=== PATIENT | female | born 2000 | race Caucasian/White ===

== ENCOUNTER 2021-07-23 22:06 | Emergency (ER) | payer BC, SELFPAY ==
[2021-07-23 22:34] VITALS: BP 103/72; PULSE 71; RESP 16; TEMP 36.8; O2SAT 98; BMI 19.1
--- NOTE | 2021-07-23 23:20 | W.ED.NAVMDI ---
HPI - Nausea/Vomiting/Diarrhea General: Chief complaint: Nausea/Vomiting/Diarrhea Stated complaint: N\V Fever Time Seen by Provider: 07/23/21 22:20 Source: patient Mode of arrival: ambulatory Limitations: no limitations History of Present Illness: 21-year-old female states she been having nausea vomiting along with some abdominal cramping throughout the day. States he started this morning she not been able to tolerate anything by mouth has been feeling dehydrated. She has some diffuse abdominal cramping denies any pain currently. Denies any worsening improving factors. Associated nausea: Yes Associated symtoms: Reports nausea; Denies chest pain, dysuria or headache(s) Review of Systems Const: Denies: fever(s), chills, body aches or change in appetite Eyes: Denies: blurry vision or eye discomfort ENMT: Denies: throat pain or dental pain Card: Denies: chest pain Resp: Denies: dyspnea GI: Reports: abdominal pain, nausea and vomiting; Denies: diarrhea : Denies: dysuria Musc: Denies: neck pain or back pain Skin/Breast: Denies: rash Neuro: Denies: headache(s) Psych: Denies: depression Ryley/Lymph: Denies: easy bruising All/Imm: Denies: urticaria PFSH ED PFSH: Medical History No pertinent past medical history Social History (Updated 07/23/21 @ 23:20 by Sj Baldwin MD) Substance/Drug Use: never Physical Exam Const: COMMON NORMALS: no acute distress, patient oriented x3 and healthy appearing HENMT: COMMON NORMALS: normocephalic and atraumatic HEAD & SCALP: normocephalic and atraumatic Eye: COMMON NORMALS: Equal, round and reactive pupils present and EOMs intact bilaterally PUPIL: Yes Equal, round and reactive pupils present Neck/C-Spine: COMMON NORMALS: full ROM and supple Chest: COMMONS NORMALS: normal inspection of the chest and normal palpation of entire chest wall Resp: COMMON NORMALS: normal respiratory effort, No retractions, No use of accessory muscles and clear to auscultation bilaterally AUSCULTATION: clear to auscultation bilaterally Cardio: COMMON NORMALS: regular rate, regular rhythm and No murmurs present (Cardio) RATE: regular rate RHYTHM: regular rhythm GI: COMMON NORMALS: Normal to inspection, nondistended, normoactive bowel sounds present, Soft to palpation, non-tender and no masses PALPATION: Yes Soft to palpation Extremity: COMMON NORMALS: normal to inspection and full ROM Neuro: COMMON NORMALS: patient oriented x3, moves all extremities and no focal motor deficits Psych: COMMON NORMALS: mental status grossly normal, Normal thought process present and cooperative THOUGHT PROCESS: Normal thought process present Skin: COMMON NORMALS: no rashes or lesions noted and no wounds GENERAL SKIN EXAM: no rashes or lesions noted Course Vital Signs: Vital signs: Vital Signs Temperature 98.2 F 07/23/21 22:34 Pulse Rate 71 07/23/21 22:34 Respiratory Rate 16 07/23/21 22:34 Blood Pressure 103/72 07/23/21 22:34 Pulse Oximetry 98 07/23/21 22:34 MDM - Nausea/Vomiting/Diarrhea Medical Decision Making Patient presents here with vomiting is likely viral illness she feels much improved after IV fluids Zofran was able to tolerate p.o. without any difficulty she has a mild leukocytosis likely reactive from vomiting abdominal exam is benign she has no signs of appendicitis or acute surgical abdomen she is to follow-up with PCP and return if worsening she understands agrees to plan. Lab Data : 07/23/21 23:25 07/23/21 23:25 Laboratory Results WBC 14.0 10^3/uL (4.5-13.0) H 07/23/21 23: RBC 4.20 10^6/uL (4.1-5.3) 07/23/21 23:25 Hgb 12.2 g/dL (11.5-15.3) 07/23/21 23:25 Hct 37.6 % (37.0-47.0) 07/23/21 23:25 MCV 89.5 fl (81-99) 07/23/21 23: MCH 29.0 pg (28.0-34.0) 07/23/21 23: MCHC 32.4 g/dL (30.0-36.0) 07/23/21 23:25 RDW 13.2 % (12.1-15.1) 07/23/21 23:25 Plt Count 305 10^3/cmm (130-400) 04/07/22 23:25 MPV 10.4 fL (7.4-10.4) 07/23/21 23:25 Neut % (Auto) 93.7 % 07/23/21 23: Lymph % (Auto) 3.1 % 07/23/21 23: [place] % (Auto) 2.6 % 07/23/21 23: Eos % (Auto) 0.0 % 07/23/21 23: Baso % (Auto) 0.3 % 07/23/21 23: Neut # (Auto) 13.14 10^3/uL (1.8-8.0) H 07/23/21 23: Lymph # (Auto) 0.4 10^3/uL (1.5-6.5) L 07/23/21 23: [place] # (Auto) 0.4 10^3/uL (0.2-0.9) 07/23/21 23: Eos # (Auto) 0.0 10^3/uL (0.0-0.8) 07/23/21 23: Baso # (Auto) 0.0 10^3/uL (0.0-0.1) 07/23/21 23: Nucleated RBC % (auto) 0 % 07/23/21: Nucleated RBCs # 0.0 /100WBC 07/23/21 23:25 Sodium 136 mmol/L (136-145) 07/23/21 23:25 Potassium 3.5 mmol/L (3.5-5.1) 07/23/21 23:25 Chloride 98 mmol/L (98-107) 07/23/21 23:25 Carbon Dioxide 22 mmol/L (22-29) 07/23/21 23:25 Anion Gap 19.5 (5-19) H 07/23/21 23:25 BUN 17 mg/dL (6-20) 07/23/21 23:25 Creatinine 0.6 mg/dL (0.5-0.9) 07/23/21 23:25 GFR Calculation 127.5 mL/min (90-130) 07/23/21 23:25 Glucose 94 mg/dL (65-115) 07/23/21 23:25 Calculated Osmolality 283 mOsm/kg (285-295) L 07/23/21 23:25 Calcium 9.7 mg/dL (8.5-10.5) 07/23/21 23:25 Total Bilirubin 0.5 mg/dL (0.15-1.2) 07/23/21 23:25 AST 15 U/L (0-32) 07/23/21 23:25 ALT 12 U/L (0-33) 07/23/21 23:25 Alkaline Phosphatase 74 IU/L (35-105) 07/23/21 23:25 Total Protein 8.0 g/dL (6.6-8.7) 07/23/21 23:25 Albumin 5.0 g/dL (3.5-5.2) 07/23/21 23:25 Globulin 3.0 g/dL (1.3-4.6) 07/23/21 23:25 Lipase 11 U/L (13-60) L 07/23/21 23:25 HCG, Qual Negative (Negative) 07/23/21 23:25 Influenza Type A Ag Negative (Negative) 07/23/21 23:48 Influenza Type B Ag Negative (Negative) 07/23/21 23:48 Discharge Plan Discharge Patient Disposition: Home Clinical Impression: Vomiting Qualifiers: Vomiting type: unspecified Nausea presence: with nausea Qualified Code(s): R11.2 - Nausea with vomiting, unspecified Prescriptions: New ondansetron 4 mg tablet,disintegrating 4 mg PO Q6H PRN (Reason: nausea and vomiting) Qty: 14 0RF Discharge Orders: Discharge ED (Routine); Ordered 07/24/21 Ordered By: Sj Baldwin Referrals: Chan Arguello MD [Primary Care Provider] - 1-3 days Discharge Diet: Advance as tolerated Discharge Activity: Resume usual activity Patient Instructions: Acute Nausea and Vomiting (ED) Coding Level of Care Code ED Health Insurance Specialist for Chg Fwd Exam Comprehensive
[2021-07-23 23:30] VITALS: BP 109/56; PULSE 106; RESP 20; O2SAT 100
[2021-07-23] MEDS: sodium chloride 0.9% 1,000 ML 999 ML IV (23:35)
[2021-07-23] MEDS: ondansetron 2 mg/ML SDV 2 mL 4 MG IVP (23:36)
[2021-07-23 23:44] LABS: Basophils % 0.3 %; Hematocrit 37.6 % (37.0-47.0); Hemoglobin 12.2 g/dL (11.5-15.3); Lymphocytes # 0.4 10^3/uL (1.5-6.5); Lymphocytes % 3.1 %; Mean Corpuscular HGB Conc 32.4 g/dL (30.0-36.0); Mean Corpuscular Volume 89.5 fl (81-99); Mean Platelet Volume 10.4 fL (7.4-10.4); Monocytes # 0.4 10^3/uL (0.2-0.9); Monocytes % 2.6 %; Neutrophils # 13.14 10^3/uL (1.8-8.0); Neutrophils % 93.7 %; Nucleated Red Blood Cells % 0 %; Platelet Count 305 10^3/cmm (130-400); Red Cell Distribution Width 13.2 % (12.1-15.1)
[2021-07-23 23:59] LABS: HCG, Serum Qual Negative (Negative)
[2021-07-24 00:01] LABS: Alanine Aminotransferase 12 U/L (0-33); Alkaline Phosphatase 74 IU/L (35-105); Anion Gap 19.5 (5-19); Aspartate Amino Transferase 15 U/L (0-32); Blood Urea Nitrogen 17 mg/dL (6-20); Calcium 9.7 mg/dL (8.5-10.5); Carbon Dioxide 22 mmol/L (22-29); Chloride 98 mmol/L (98-107); Glomerular Filtration Rate 127.5 mL/min (90-130); Glucose 94 mg/dL (65-115); Lipase 11 U/L (13-60); Osmolality Calculated 283 mOsm/kg (285-295); Potassium 3.5 mmol/L (3.5-5.1); Sodium 136 mmol/L (136-145); Total Bilirubin 0.5 mg/dL (0.15-1.2)
[2021-07-24 00:30] VITALS: BP 107/66; PULSE 66; RESP 20; O2SAT 100
[2021-07-24 00:35] LABS: Influenza A by IFA Negative (Negative); Influenza B by IFA Negative (Negative)
[2021-07-24 01:03] VITALS: BP 105/69; PULSE 69; O2SAT 98
== END 2021-07-24 01:06 | disposition home or self-care (01) ==
PROVIDERS: Emergency Provider Emergency Medicine; PCP Pediatrics
DX: R11.2 Nausea with vomiting, unspecified (principal)
CPT/HCPCS: 80053; 83690; 84703; 85025; 87804; 96361; 96374; 99284; J2405; J7030

== ENCOUNTER 2022-04-04 05:30 | Emergency (ER) | payer BC, SELFPAY ==
[2022-04-04 05:39] VITALS: BP 117/80; PULSE 98; RESP 18; TEMP 37.1; O2SAT 100; BMI 18.8
--- NOTE | 2022-04-04 05:39 | XRR_ITS ---
PROCEDURE INFORMATION: Exam: XR Chest Exam date and time: 04/04/2022 5:57 AM Age: 22 years old Clinical indication: Pain; Chest pressure; Additional info: Cp TECHNIQUE: Imaging protocol: Radiologic exam of the chest. Views: 1 view. Total images: 887 COMPARISON: No relevant prior studies available. FINDINGS: Lungs: Unremarkable. No consolidation. Pleural spaces: Unremarkable. No pleural effusion. No pneumothorax. Heart/Mediastinum: Unremarkable. No cardiomegaly. Bones/joints: Unremarkable. XR/XR chest 1V portable [id number] IMPRESSION: No acute findings.
--- NOTE | 2022-04-04 05:39 | ECG_ITS ---
[facility] Test Date: 2022-04-04 Pat Name: Luz Marina Manzanares Department: Room: Gender: Female Assembler Faucets: : 2000 Requested By: Sj Baldwin Order Number: [id number] Nelda MD: Maciel Osborne Measurements Intervals [place] Rate: 110 P: 79 WA: 138 QRS: 77 QRSD: 91 T: 35 QT: 322 QTc: 436 Interpretive Statements SINUS TACHYCARDIA NONSPECIFIC ST & T-WAVE ABNORMALITY ABNORMAL RHYTHM ECG No previous ECG available for comparison Electronically Signed On 04-04-2022 15:10:19 SUPERVISOR GEAR REPAIR by Maciel Osborne [email or web address]
--- NOTE | 2022-04-04 05:44 | W.ED.ABDPA2 ---
HPI - Abdominal Pain General: Chief Complaint: Abdominal Pain Stated Complaint: cp Time Seen by Provider: 04/04/22 05:38 Source: patient Mode of arrival: ambulatory Limitations: no limitations History of Present Illness: 22-year-old female states that she is prescribed antibiotics for tooth ache yesterday she states she took 1 since been having abdominal pain she states its been cramping and there mid abdomen has been having nausea vomiting tonight. States she had pain she rates a 4 out of 10 currently she denies any worsening proving factors states it radiates into her chest denies fever Associated Symptoms: Reports nausea; Denies chills, dysuria and fever(s) Review of Systems Const: Denies: fever(s), chills, body aches or change in appetite Eyes: Denies: blurry vision or eye discomfort ENMT: Denies: throat pain or dental pain Card: Reports: chest pain Resp: Denies: dyspnea GI: Reports: abdominal pain and nausea : Denies: dysuria Musc: Denies: neck pain or back pain Skin/Breast: Denies: rash Neuro: Denies: headache(s) Psych: Denies: depression Ryley/Lymph: Denies: easy bruising All/Imm: Denies: urticaria PFSH ED PFSH: Medical History No pertinent past medical history Physical Exam Const: COMMON NORMALS: no acute distress, patient oriented x3 and healthy appearing HENMT: COMMON NORMALS: normocephalic and atraumatic HEAD & SCALP: normocephalic and atraumatic Eye: COMMON NORMALS: Equal, round and reactive pupils present and EOMs intact bilaterally PUPIL: Yes Equal, round and reactive pupils present Neck/C-Spine: COMMON NORMALS: full ROM and supple Chest: COMMONS NORMALS: normal inspection of the chest and normal palpation of entire chest wall Resp: COMMON NORMALS: normal respiratory effort, No retractions, No use of accessory muscles and clear to auscultation bilaterally AUSCULTATION: clear to auscultation bilaterally Cardio: COMMON NORMALS: regular rate, regular rhythm and No murmurs present (Cardio) RATE: regular rate RHYTHM: regular rhythm GI: COMMON NORMALS: Normal to inspection, nondistended, normoactive bowel sounds present, Soft to palpation, non-tender and no masses PALPATION: Yes Soft to palpation Extremity: COMMON NORMALS: normal to inspection and full ROM Neuro: COMMON NORMALS: patient oriented x3, moves all extremities and no focal motor deficits Psych: COMMON NORMALS: mental status grossly normal, Normal thought process present and cooperative THOUGHT PROCESS: Normal thought process present Skin: COMMON NORMALS: no rashes or lesions noted and no wounds GENERAL SKIN EXAM: no rashes or lesions noted Course Vital Signs: Vital signs: Vital Signs Temperature 98.7 F 04/04/22 05:39 Pulse Rate 98 04/04/22 05:39 Respiratory Rate 18 04/04/22 05:39 Blood Pressure 117/80 04/04/22 05:39 Pulse Oximetry 100 04/04/22 05:39 MDM - Abdominal Pain Medical Decision Making Patient presents here with abdominal pain along with vomiting could be from the recent antibiotic her blood work here is normal exam is benign no signs of acute surgical abdomen she feels much improved currently we will prescribe her Zofran she is to follow-up with her PCP and return if worsening. Lab Data 04/04/22 05:48 04/04/22 05:48 Labs/Radiology: Radiology Impressions Chest X-Ray 04/04/22 05:39 IMPRESSION: No acute findings. Laboratory Results WBC 9.9 10^3/uL (4.0-10.0) 04/04/22 05:48 RBC 4.17 10^6/uL (4.1-5.3) 04/04/22 05:48 Hgb 12.8 g/dL (11.5-15.3) 04/04/22 05:48 Hct 39.2 % (37.0-47.0) 04/04/22 05:48 MCV 94.0 fl (81-99) 04/04/22 05:48 MCH 30.7 pg (28.0-34.0) 04/04/22 05:48 MCHC 32.7 g/dL (30.0-36.0) 04/04/22 05:48 RDW 12.1 % (12.1-15.1) 04/04/22 05:48 Plt Count 271 10^3/cmm (130-400) 04/04/22 05:48 MPV 9.9 fL (7.4-10.4) 04/04/22 05:48 Neut % (Auto) 71.1 % 04/04/22 05:48 Lymph % (Auto) 21.8 % 04/04/22 05:48 [place] % (Auto) 6.0 % 04/04/22 05:48 Eos % (Auto) 0.6 % 04/04/22 05:48 Baso % (Auto) 0.3 % 04/04/22 05:48 Neut # (Auto) 7.04 10^3/uL (1.8-7.7) 04/04/22 05:48 Lymph # (Auto) 2.2 10^3/uL (0.8-4.8) 04/04/22 05:48 [place] # (Auto) 0.6 10^3/uL (0.2-0.9) 04/04/22 05:48 Eos # (Auto) 0.1 10^3/uL (0.0-0.8) 04/04/22 05:48 Baso # (Auto) 0.0 10^3/uL (0.0-0.1) 04/04/22 05:48 Nucleated RBC % (auto) 0 % 04/04/22 05:48 Nucleated RBCs # 0.0 /100WBC 04/04/22 05:48 Sodium 132 mmol/L (136-145) L 04/04/22 05:48 Potassium 3.8 mmol/L (3.5-5.1) 04/04/22 05:48 Chloride 99 mmol/L (98-107) 04/04/22 05:48 Carbon Dioxide 23 mmol/L (22-29) 04/04/22 05:48 Anion Gap 13.8 (5-19) 04/04/22 05:48 BUN 12 mg/dL (6-20) 04/04/22 05:48 Creatinine 0.7 mg/dL (0.5-0.9) 04/04/22 05:48 GFR Calculation 105.6 mL/min (90-130) 04/04/22 05:48 Glucose 117 mg/dL (65-115) H 04/04/22 05:48 Calculated Osmolality 275 mOsm/kg (285-295) L 04/04/22 05:48 Calcium 9.2 mg/dL (8.5-10.5) 04/04/22 05:48 Total Bilirubin 0.5 mg/dL (0.15-1.2) 04/04/22 05:48 AST 43 U/L (0-32) H 04/04/22 05:48 ALT 23 U/L (0-33) 04/04/22 05:48 Alkaline Phosphatase 63 U/L (35-105) 04/04/22 05:48 Total Protein 7.5 g/dL (6.6-8.7) 04/04/22 05:48 Albumin 4.5 g/dL (3.5-5.2) 04/04/22 05:48 Globulin 3.0 g/dL (1.3-4.6) 04/04/22 05:48 HCG, Qual Negative (Negative) 04/04/22 05:48 Urine Color Yellow (Yellow) 04/04/22 06:50 Urine Appearance Hazy (CLEAR) A 04/04/22 06:50 Urine pH 5 (5-7) 04/04/22 06:50 Ur Specific [place] 1.025 (1.005-1.030) 04/04/22 06:50 Urine Protein Neg (Negative) 04/04/22 06:50 Urine Glucose (UA) Norm (Normal) 04/04/22 06:50 Urine Ketones Negative (Negative) 04/04/22 06:50 Urine Blood 2+ (Negative) H 04/04/22 06:50 Urine Nitrate Negative (Negative) 04/04/22 06:50 Urine Bilirubin Neg (Negative) 04/04/22 06:50 Urine Urobilinogen Norm mg/dL (Negative) 04/04/22 06:50 Ur Leukocyte Esterase 1+ (Negative) H 04/04/22 06:50 Urine RBC 5-10 /hpf (0-2) H 04/04/22 06:50 Urine WBC 15-25 /hpf (0-5) H 04/04/22 06:50 Ur Squamous Epith Cells 15-25 /hpf (0-5) H 04/04/22 06:50 Amorphous Sediment Not Reportable 04/04/22 06:50 Urine Bacteria 2+ /hpf (NONE) H 04/04/22 06:50 Urine Mucus 2+ /hpf 04/04/22 06:50 Discharge Plan Discharge Patient Disposition: Home Clinical Impression: Abdominal pain Condition: Stable Prescriptions: New ondansetron 4 mg tablet,disintegrating 4 mg PO Q6H PRN (Reason: nausea and vomiting) Qty: 14 0RF No Action ondansetron 4 mg tablet,disintegrating 4 mg PO Q6H PRN (Reason: nausea and vomiting) Qty: 14 0RF Discharge Orders: Discharge ED (Routine); Ordered 04/04/22 Ordered By: Sj Baldwin Discharge Diet: Advance as tolerated Discharge Activity: Resume usual activity Patient Instructions: Abdominal Pain (ED) Coding Level of Care Code ED Mechanic Insulator for Donna Fwjosefina Exam Comprehensive
[2022-04-04 05:55] LABS: Basophils % 0.3 %; Eosinophils # 0.1 10^3/uL (0.0-0.8); Eosinophils % 0.6 %; Hematocrit 39.2 % (37.0-47.0); Hemoglobin 12.8 g/dL (11.5-15.3); Lymphocytes # 2.2 10^3/uL (0.8-4.8); Lymphocytes % 21.8 %; Mean Corpuscular HGB Conc 32.7 g/dL (30.0-36.0); Mean Corpuscular Hemoglobin 30.7 pg (28.0-34.0); Mean Platelet Volume 9.9 fL (7.4-10.4); Monocytes # 0.6 10^3/uL (0.2-0.9); Neutrophils # 7.04 10^3/uL (1.8-7.7); Neutrophils % 71.1 %; Nucleated Red Blood Cells % 0 %; Platelet Count 271 10^3/cmm (130-400); Red Blood Count 4.17 10^6/uL (4.1-5.3); Red Cell Distribution Width 12.1 % (12.1-15.1); White Blood Count 9.9 10^3/uL (4.0-10.0)
[2022-04-04] MEDS: sodium chloride 0.9% 1,000 ML 999 ML IV (05:56)
[2022-04-04] MEDS: ondansetron 2 mg/ML SDV 2 mL 4 MG IVP (05:56)
[2022-04-04 06:11] LABS: Alanine Aminotransferase 23 U/L (0-33); Albumin Level 4.5 g/dL (3.5-5.2); Alkaline Phosphatase 63 U/L (35-105); Anion Gap 13.8 (5-19); Aspartate Amino Transferase 43 U/L (0-32); Blood Urea Nitrogen 12 mg/dL (6-20); Calcium 9.2 mg/dL (8.5-10.5); Carbon Dioxide 23 mmol/L (22-29); Chloride 99 mmol/L (98-107); Creatinine Clr Calc Pharmacy 105.9225; Glomerular Filtration Rate 105.6 mL/min (90-130); Glucose 117 mg/dL (65-115); HCG, Serum Qual Negative (Negative); Osmolality Calculated 275 mOsm/kg (285-295); Potassium 3.8 mmol/L (3.5-5.1); Sodium 132 mmol/L (136-145); Total Bilirubin 0.5 mg/dL (0.15-1.2); Total Protein 7.5 g/dL (6.6-8.7)
[2022-04-04 07:09] LABS: Add Urine Microscopic? YES; Bilirubin Urine Neg (Negative); Blood Urine 2+ (Negative); Glucose Urine UA Norm (Normal); Ketones Urine Negative (Negative); Leukocyte Esterase Urine 1+ (Negative); Nitrate Urine Negative (Negative); Protein Urine Neg (Negative); Specific Gravity, Urine 1.025 (1.005-1.030); Urine Appearance Hazy (CLEAR); Urine Color Yellow (Yellow); Urobilinogen Urine Norm (Negative); pH Urine 5 (5-7)
[2022-04-04 07:11] LABS: Squamous Epithelial Cell Urine 15-25 /hpf (0-5); WBC Urine 15-25 /hpf (0-5)
[2022-04-04 07:12] LABS: Add Urine Culture? No; Bacteria Urine 2+ /hpf; Mucus Urine 2+ /hpf
[2022-04-04 07:54] VITALS: PULSE 82; O2SAT 100
== END 2022-04-04 07:30 | disposition home or self-care (01) ==
PROVIDERS: Emergency Provider Emergency Medicine
DX: R10.9 Unspecified abdominal pain (principal)
CPT/HCPCS: 71045; 80053; 81001; 84703; 85025; 93005; 96361; 96374; 99284; J2405; J7030

== ENCOUNTER → 2022-08-18 08:49 | Outpatient (BNVA) | payer BC, SELFPAY | PROVIDERS: Visit Provider Nurse Practitioner Women's Health | DX: N92.6 Irregular menstruation, unspecified (principal) | CPT/HCPCS: 81025 ==

== ENCOUNTER → 2022-08-27 11:36 | Outpatient (BNVA) | payer OTHER, SELFPAY | PROVIDERS: Visit Provider Nurse Practitioner Women's Health | DX: Z34.90 Encounter for supervision of normal pregnancy, unspecified, unspecified trimester (principal) | CPT/HCPCS: 81000 ==

== ENCOUNTER → 2022-09-09 10:55 | Outpatient (BNVA) | payer OTHER, SELFPAY | PROVIDERS: Visit Provider Obstetrics & Gynecology | DX: Z34.00 Encounter for supervision of normal first pregnancy, unspecified trimester (principal) | CPT/HCPCS: 80307; 84315; 87086 ==

== ENCOUNTER → 2022-09-14 11:45 | Outpatient (BNVA) | payer SELFPAY | PROVIDERS: Visit Provider Obstetrics & Gynecology | DX: Z34.00 Encounter for supervision of normal first pregnancy, unspecified trimester (principal) | CPT/HCPCS: 84443; 85027; 86592; 86762; 86803; 86850; 86900; 87340; 87806 ==

== ENCOUNTER → 2022-09-23 09:00 | Outpatient (BNVA) | payer OTHER, SELFPAY | PROVIDERS: Visit Provider Obstetrics & Gynecology | DX: Z34.00 Encounter for supervision of normal first pregnancy, unspecified trimester (principal) | CPT/HCPCS: 81000; 87086; 87491; 87591; 87661; 88175 ==

== ENCOUNTER → 2022-10-21 09:47 | Outpatient (BNVA) | payer OTHER, SELFPAY | PROVIDERS: Visit Provider Obstetrics & Gynecology | DX: Z34.00 Encounter for supervision of normal first pregnancy, unspecified trimester (principal) | CPT/HCPCS: 84315; 87086 ==

== ENCOUNTER → 2023-01-10 10:27 | Outpatient (BNVA) | payer OTHER, MEDICAID, SELFPAY | PROVIDERS: Visit Provider Obstetrics & Gynecology | DX: Z34.00 Encounter for supervision of normal first pregnancy, unspecified trimester | CPT/HCPCS: 82950; 84315; 85025 ==

== ENCOUNTER → 2023-03-08 11:07 | Outpatient (BNVA) | payer OTHER, MEDICAID, SELFPAY | PROVIDERS: Visit Provider Obstetrics & Gynecology | DX: Z34.92 Encounter for supervision of normal pregnancy, unspecified, second trimester (principal); Z3A.14 14 weeks gestation of pregnancy | CPT/HCPCS: 76816; 84315; 87081 ==

== ENCOUNTER → 2023-04-05 10:24 | Outpatient (BNVA) | payer OTHER, MEDICAID, SELFPAY | PROVIDERS: Visit Provider Obstetrics & Gynecology | DX: Z34.90 Encounter for supervision of normal pregnancy, unspecified, unspecified trimester (principal) | CPT/HCPCS: 76819 ==

== ENCOUNTER 2023-04-08 07:00 | Inpatient (IN) | payer OTHER, MEDICAID, SELFPAY ==
[2023-04-08] VITALS (46 sets, daily range): BP systolic 93–174; BP diastolic 52–98; PULSE 68–166; RESP 16; TEMP 36.6–37.2; O2SAT 97; BMI 24.3
[2023-04-08 02:40] LABS: Basophils % 0.3 %; Eosinophils # 0.1 10^3/uL (0.0-0.8); Eosinophils % 0.5 %; Hematocrit 31.4 % (36-47); Lymphocytes # 1.7 10^3/uL (0.8-4.8); Lymphocytes % 14.2 %; Mean Corpuscular HGB Conc 32.2 g/dL (30-55); Mean Corpuscular Hemoglobin 28.6 pg (27-33); Mean Platelet Volume 10.4 fL (7.4-10.4); Monocytes # 0.8 10^3/uL (0.2-0.9); Monocytes % 6.2 %; Neutrophils # 9.23 10^3/uL (1.8-7.7); Neutrophils % 75.9 %; Nucleated Red Blood Cells % 0 %; Platelet Count 250 10^3/cmm (157-399); Red Blood Count 3.53 10^6/uL (3.85-5.65); White Blood Count 12.16 10^3/uL (3.29-11.43)
[2023-04-08] MEDS: miSOPROStol 100 mcg tablet 25 MCG VAGINAL (03:03)
[2023-04-08] MEDS: butorphanol 2 mg/mL SDV 1 mL 1 MG IVP (06:40)
--- NOTE | 2023-04-08 07:20 | P.HP_ITS ---
Providers/Chief Complaint 2 Admitting Physician: Ignacio Vaughan MD Primary BUSINESS PERFORMANCE ANALYST: Ignacio Vaughan MD Chief Complaint: IOL HPI BUSINESS PERFORMANCE ANALYST History of Present Illness 23 y.o. G1 EDC April 02, 2023 At 40 w 6 d No complications Admitted for labor induction due to postdatism No c/o + active movements PMHx: headaches PSHx: appendectomy cholecystectomy Present Details : 1 Para: 0 Labs Rubella: Immune RPR: Negative GBS: Negative Medications/Allergies Home Medications Medication Instructions Recorded Confirmed Last Taken Type prenat.vits,lazaro,gdb-sldk-lhwbh 1 tab PO DAILY 08/18/22 04/05/23 Unknown History Allergies Allergy/AdvReac Type Severity Reaction Status Date / Time fentanyl Allergy ALGY-Difficulty Verified 04/05/23 10:27 Breathing morphine Allergy ALGY-Difficulty Verified 04/05/23 10:27 Breathing Sulfa (Sulfonamide Allergy ALGY-Rash Verified 04/05/23 10:27 Antibiotics) PFSH BUSINESS PERFORMANCE ANALYST 2 PFSH: Medical History No pertinent past medical history neghx:htn,dm,thyroid,dvt/pe PCP: Quentin Villaseñor Surgical History History of appendectomy History of cholecystectomy Family History Denies family history of Cervical cancer Colon cancer Ovarian cancer Diabetes Breast cancer Hypertension Uterine cancer Thyroid disease Stroke Social History Substance/Drug Use: never History History History 2 1 Term 0 Miscarriages/Ectopic Living Children Care PA Calculator 2 Estimated Delivery Date Method Current WG Current Estimate 04/02/23 LMP (Certain) 41w 0d Specific Issues/Plans * None Vitals/I&O/Wt Last Vital Signs Temp 98.5 F 04/09/23 15:25 Pulse 99 04/09/23 15:25 Resp 16 04/09/23 15:25 BP 112/68 04/09/23 15:25 Pulse Ox 96 04/09/23 15:25 O2 Del Method Room Air 04/09/23 14:58 Weight last 48 hrs Weight 142 lb Weight 142 lb Physical Exam 2 Narrative: Weight 140 lbs; 5?4? VS normal Comfortable, awake, alert Lungs: clear Cor: RRR no m Abd: soft, nontender FH 37 cm, cephalic Cx: 2 cm / 75% / -4 / posterior / Vtx Ext: no edema External monitor: heart tracing good variability, + accelerations Data 04/09/23 01:15 Results Labs OB ([facility] 2 Obstetrics US 03/08/23 Obstetrics US/Biophysical Profile Blood Type O Positive 04/08/23 Antibody Screen Negative 04/08/23 Hct 26.3 % (36-47) L 04/09/23 Hgb 8.60 g/dL (11.27-16.99) L 04/09/23 Rho(D) Type Rh positive 04/08/23 Plt Count 218 10^3/cmm (157-399) 04/09/23 Hep Bs Antigen Non-reactive (Nonreactive) 09/14/22 Hepatitis C Antibody Non-reactive (Nonreactive) 09/14/22 Rubella IgG Antibody 56.3 IU/mL (0.0-10.0) H 09/14/22 RPR Nonreactive (Nonreactive) 09/14/22 HIV 1&2 Ab & HIV 1 Ag Non-reactive (Non-Reactiv) 09/14/22 TSH 1.31 uIU/mL (0.27-4.20) 09/14/22 Cystic Fibrosis Screen Negative 09/14/22 Gest Glucose Tolerance 91 mg/dL (70-139) 01/10/23 HCG, Qual Positive (Negative) H 08/16/22 Urine Opiates Screen Negative ng/mL (Negative) 09/09/22 Ur Barbiturates Screen Negative ng/mL (Negative) 09/09/22 Ur Phencyclidine Scrn Negative ng/mL (Negative) 09/09/22 Ur Amphetamines Screen Negative ng/mL (Negative) 09/09/22 U Benzodiazepines Scrn Negative ng/mL (Negative) 09/09/22 Urine Cocaine Screen Negative ng/mL (Negative) 09/09/22 U Marijuana (THC) Screen Negative ng/mL (Negative) 09/09/22 Micro Urine Specimen 10/21/22 Pap Smear Interpret See note 09/23/22 A&P Assessment and plan (1) Supervision of normal first : 40 w 6 d GBS negative OB sono done 03-08-23 showed good interval growth (2) Encounter for induction of labor: Plan admit for labor induction Attestations 2 Medical Necessity Statement*: patient at 40 w 6 d, admitted for labor induction Coding Level of Care Code Acute Code for Chg Fwd Diagnoses Supervision of normal first Z34.00 Encounter for induction of labor Z34.90 Time Spent (min) 30
--- NOTE | 2023-04-08 08:35 | PM.OBGYPN ---
EXTENSION SERVICE SUPERVISOR Subjective Subjective: Interval history: April 08, 2023, 0645 Fetus reassuring Feeling strong UCs Cervix: 7 cm / 90 / -1 Labor: Station: 0 Amniotic Membrane Status: Ruptured Monitor Mode: External Contraction Pattern: Regular Status: Category I Vitals/I&O/Wt Last Vital Signs Temp 98.5 F 04/09/23 15:25 Pulse 99 04/09/23 15:25 Resp 16 04/09/23 15:25 BP 112/68 04/09/23 15:25 Pulse Ox 96 04/09/23 15:25 O2 Del Method Room Air 04/09/23 14:58 Weight last 48 hrs Weight 142 lb Weight 142 lb Data 04/09/23 01:15 A&P Assessment and plan (1) Encounter for induction of labor: patient at 40 w 6 d admitted for labor induction Attestations Medical Necessity Statement*: patient at 40 w 6 d, admitted for labor induction Coding Level of Care Code Acute Code for Chg Fwd Diagnoses Encounter for induction of labor Z34.90 Time Spent (min) 20
[2023-04-08] MEDS: dextrose 5%-lactated ringers 1,000 ML 125 ML IV (08:45)
[2023-04-08] MEDS: ondansetron 2 mg/ML SDV 2 mL 4 MG IVP (10:21)
--- NOTE | 2023-04-08 12:35 | P.PN_ITS ---
ZIPPER MEASURER Subjective 2 Subjective: Interval history: April 08, 2023, 1235 DELIVERY NOTE , vigorous infant Cord gases and blood obtained Normal placenta and cord Fourth-degree perineal laceration repaired in layers EBL: 300 cc Sponge and needle counts correct No complications Labor: Station: 0 Amniotic Membrane Status: Ruptured Monitor Mode: External Contraction Pattern: Regular Status: Category I Vitals/I&O/Wt Last Vital Signs Temp 98.5 F 04/09/23 15:25 Pulse 99 04/09/23 15:25 Resp 16 04/09/23 15:25 BP 112/68 04/09/23 15:25 Pulse Ox 96 04/09/23 15:25 O2 Del Method Room Air 04/09/23 14:58 Weight last 48 hrs Weight 142 lb Weight 142 lb Data 04/09/23 01:15 A&P Assessment and plan (1) Vaginal delivery: care (2) Fourth degree perineal laceration: repaired care Attestations 2 Medical Necessity Statement*: patient s/p vaginal delivery with repair of fourth-degree perineal laceration Coding Level of Care Code Acute Code for Chg Fwd Diagnoses Vaginal delivery O80 Fourth degree perineal laceration O70.3 Time Spent (min) 60
--- NOTE | 2023-04-08 12:35 | PM.DELIVERY ---
Delivery Note: Date of delivery: April 08, 2023 Pre-delivery diagnoses: 40 w 6 d admitted for labor induction Post-delivery diagnoses: 40 w 6 d admitted for labor induction vaginal delivery repair of fourth-degree perineal laceration Procedure: labor induction vaginal delivery repair of fourth-degree perineal laceration Op report anesthesia: None Delivering Physician: Ignacio Vaughan MD Estimated blood loss (mL): 300 Findings: , vigorous Cord gases and blood obtained Normal placenta and cord Fourth-degree perineal laceration repaired in layers EBL: 300 cc Sponge and needle counts correct No complications Pre-Delivery Course: normal labor course Delivery: vaginal Post-Delivery Status: good History History History 1 Term 0 Miscarriages/Ectopic Living Children A&P Assessment and plan (1) Vaginal delivery: care (2) Fourth degree perineal laceration: care Coding Level of Care Code Acute Code for Chg Fwd Diagnoses Vaginal delivery O80 Fourth degree perineal laceration O70.3 Time Spent (min) 60
[2023-04-08] MEDS: lidocaine 2% INJ 20 mL INJECTION ×2 (12:39)
[2023-04-08] MEDS: oxytocin 30 UNIT/500 ML BAG 999 UNIT IV (12:40)
[2023-04-08] MEDS: lanolin oint 7 gm 1 APPLIC TOPICAL (14:01)
[2023-04-08] MEDS: benzocaine-menthol 78 gm Canister 1 SPRAY TOPICAL (14:02)
[2023-04-08] MEDS: ibuprofen 800 mg tablet PO ×2 (14:02→20:19)
[2023-04-08] MEDS: docusate sodium 100 mg Capsule PO (20:19)
[2023-04-09 01:24] LABS: Hematocrit 26.3 % (36-47); Mean Corpuscular HGB Conc 32.7 g/dL (30-55); Mean Corpuscular Hemoglobin 29.4 pg (27-33); Mean Corpuscular Volume 89.8 fl (85-98); Mean Platelet Volume 9.7 fL (7.4-10.4); Platelet Count 218 10^3/cmm (157-399); Red Blood Count 2.93 10^6/uL (3.85-5.65); White Blood Count 19.42 10^3/uL (3.29-11.43)
[2023-04-09] MEDS: HYDROcodone-acetaminophen 5-325 mg Tablet PO (04:35)
[2023-04-09 04:45] VITALS: BP 96/61; PULSE 83; RESP 16; TEMP 36.8; O2SAT 97
[2023-04-09] MEDS: prenatal vitamin Capsule 1 CAP PO (09:02)
[2023-04-09] MEDS: docusate sodium 100 mg Capsule PO (09:02)
[2023-04-09] MEDS: ibuprofen 800 mg tablet PO (09:02)
[2023-04-09 09:03] VITALS: BP 99/63; PULSE 102; RESP 17; TEMP 36.5; O2SAT 97
--- NOTE | 2023-04-09 12:50 | PM.OBGYPN ---
PIPE FITTER MAINTENANCE Subjective Subjective: Interval history: no c/o no bleeding, pain eating, voiding, ambulating well caring for without any problems Labor: Station: 0 Amniotic Membrane Status: Ruptured Monitor Mode: External Contraction Pattern: Regular Status: Category I Vitals/I&O/Wt Last Vital Signs Temp 98.5 F 04/09/23 15:25 Pulse 99 04/09/23 15:25 Resp 16 04/09/23 15:25 BP 112/68 04/09/23 15:25 Pulse Ox 96 04/09/23 15:25 O2 Del Method Room Air 04/09/23 14:58 Weight last 48 hrs Weight 142 lb Weight 142 lb Physical Exam Narrative: afebrile, VS normal comfortable, awake, alert Abd: soft, nontender. fundus firm Ext: no edema; nontender Data 04/09/23 01:15 A&P Assessment and plan (1) Vaginal delivery: PPD #1 vaginal delivery, repair of fourth-degree perineal laceration doing well discharge home today instructions and precautions given call/return if fever, chills, headache, blurry vision, nausea, vomiting, abdominal pain; vaginal bleeding or discharge; shortness of breath, chest pain, leg pains or swelling; inability to void, perineal pain or swelling; feelings of depression or mood changes; thoughts of suicide or harming others; inability to care for baby. f/u in one week or PRN (2) Fourth degree perineal laceration: Attestations Medical Necessity Statement*: patient s/p vaginal delivery, plan discharge home today Coding Level of Care Code Acute Code for Chg Fwd Diagnoses Vaginal delivery O80 Fourth degree perineal laceration O70.3 Time Spent (min) 20
--- NOTE | 2023-04-09 12:50 | PM.OBGYDC ---
Discharge Providers AUTOMOTIVE DRIVABILITY TECHNICIAN Date of Admission: 04/08/23 07:00 Date of Discharge: 04/09/23 Attending Provider at Admission: Ignacio Vaughan MD Attending Provider at Discharge: Ignacio Vaughan MD Consults: none Primary AUTOMOTIVE DRIVABILITY TECHNICIAN: Ignacio Vaughan MD Diagnoses at Discharge Discharge Diagnosis (1) Vaginal delivery: Details from hospital stay: patient admitted at 40 w 6 d for labor induction normal labor progress had vaginal delivery with repair of fourth-degree perineal laceration did well without any complications discharged home on first day Status: Acute (2) Fourth degree perineal laceration: Status: Acute Reason for Visit Reason for Visit: IOL Brief History: 23 y.o. G1 at 40 w 6 d admitted for labor induction due to postdatism Hospital Course Hospital Course normal labor progress had vaginal delivery with repair of fourth-degree perineal laceration did well without any complications discharged home on first day Information Peripartum Data: Delivery Method: Vaginal Laceration description: Perineal - 4th Degree Episiotomy description: None complications: none Physical Exam Narrative: afebrile, VS normal comfortable, awake, alert Abd: soft, nontender. fundus firm Ext: no edema; nontender History History History 1 Term 0 Miscarriages/Ectopic Living Children Discharge Data Studies Completed and Pending Laboratory Results WBC 19.42 10^3/uL (3.29-11.43) H 04/09/23 01:15 RBC 2.93 10^6/uL (3.85-5.65) L 04/09/23 01:15 Hgb 8.60 g/dL (11.27-16.99) L 04/09/23 01:15 Hct 26.3 % (36-47) L 04/09/23 01:15 MCV 89.8 fl (85-98) 04/09/23 01:15 MCH 29.4 pg (27-33) 04/09/23 01:15 MCHC 32.7 g/dL (30-55) 04/09/23 01:15 RDW 13.0 % (12.1-15.1) 04/09/23 01:15 Plt Count 218 10^3/cmm (157-399) 04/09/23 01:15 MPV 9.7 fL (7.4-10.4) 04/09/23 01:15 Neut % (Auto) 75.9 % 04/08/23 01:45 Lymph % (Auto) 14.2 % 04/08/23 01:45 Gentry % (Auto) 6.2 % 04/08/23 01:45 Eos % (Auto) 0.5 % 04/08/23 01:45 Baso % (Auto) 0.3 % 04/08/23 01:45 Neut # (Auto) 9.23 10^3/uL (1.8-7.7) H 04/08/23 01:45 Lymph # (Auto) 1.7 10^3/uL (0.8-4.8) 04/08/23 01:45 Gentry # (Auto) 0.8 10^3/uL (0.2-0.9) 04/08/23 01:45 Eos # (Auto) 0.1 10^3/uL (0.0-0.8) 04/08/23 01:45 Baso # (Auto) 0.0 10^3/uL (0.0-0.1) 04/08/23 01:45 Nucleated RBC % (auto) 0 % 04/08/23 01:45 Nucleated RBCs # 0.0 /100WBC 04/08/23 01:45 Blood Type O Positive 04/08/23 01:45 Rho(D) Type Rh positive 04/08/23 01:45 Antibody Screen Negative 04/08/23 01:45 Procedures Performed labor induction vaginal delivery repair of fourth-degree perineal laceration Vitals Last Vital Signs Temp 98.5 F 04/09/23 15:25 Pulse 99 04/09/23 15:25 Resp 16 04/09/23 15:25 BP 112/68 04/09/23 15:25 Pulse Ox 96 04/09/23 15:25 O2 Del Method Room Air 04/09/23 14:58 Results Labs OB ([facility]): Obstetrics US 03/08/23 Obstetrics US/Biophysical Profile 04/05/23 Blood Type O Positive 04/08/23 Antibody Screen Negative 04/08/23 Hct 26.3 % (36-47) L 04/09/23 Hgb 8.60 g/dL (11.27-16.99) L 04/09/23 Rho(D) Type Rh positive 04/08/23 Plt Count 218 10^3/cmm (157-399) 04/09/23 Hep Bs Antigen Non-reactive (Nonreactive) 09/14/22 Hepatitis C Antibody Non-reactive (Nonreactive) 09/14/22 Rubella IgG Antibody 56.3 IU/mL (0.0-10.0) H 09/14/22 RPR Nonreactive (Nonreactive) 09/14/22 HIV 1&2 Ab & HIV 1 Ag Non-reactive (Non-Reactiv) 09/14/22 TSH 1.31 uIU/mL (0.27-4.20) 09/14/22 Cystic Fibrosis Screen Negative 09/14/22 Gest Glucose Tolerance 91 mg/dL (70-139) 01/10/23 HCG, Qual Positive (Negative) H 08/16/22 Urine Opiates Screen Negative ng/mL (Negative) 09/09/22 Ur Barbiturates Screen Negative ng/mL (Negative) 09/09/22 Ur Phencyclidine Scrn Negative ng/mL (Negative) 09/09/22 Ur Amphetamines Screen Negative ng/mL (Negative) 09/09/22 U Benzodiazepines Scrn Negative ng/mL (Negative) 09/09/22 Urine Cocaine Screen Negative ng/mL (Negative) 09/09/22 U Marijuana (THC) Screen Negative ng/mL (Negative) 09/09/22 Micro Urine Specimen 10/21/22 Pap Smear Interpret See note 09/23/22 Discharge Plan Discharge Patient Disposition: Home Condition: Stable Prescriptions: Continued prenat.vits,lazaro,[id number] Tablet 1 tab PO DAILY Discharge Orders: Discharge Order (Routine); Ordered 04/09/23 Ordered By: Ignacio Vaughan Referrals: Ignacio Vaughan MD [Physician] - 6 Weeks (please call Tuesday to set up an appointment to see Dr. Vaughan) Discharge Diet: Usual diet Discharge Activity: Increase activity as tolerated Patient Instructions: Depression (DC), Perineal Care (DC), Bleeding (DC), Preeclampsia and Eclampsia After Delivery (GEN), COVID-19 and (GEN), Hemorrhage (DC), OB Discharge Report, OB Food/Drug Interaction Guide, OB Home Care Instructions, OB Care at Home, Opioid Safety, OB Home Care, OB Vaginal Deliveries - [facility] Discharge Attestations AUTOMOTIVE DRIVABILITY TECHNICIAN Time Spent in Discharge Care*: less than 30 min Coding Level of Care Code Acute Code for Chg Fwd Diagnoses Vaginal delivery O80 Fourth degree perineal laceration O70.3 Time Spent (min) 20
[2023-04-09 14:58] VITALS: BP 112/68; PULSE 99; RESP 16; TEMP 36.9; O2SAT 96
[2023-04-09 15:25] VITALS: BP 112/68; PULSE 99; RESP 16; TEMP 36.9; O2SAT 96
== END 2023-04-09 15:25 | disposition home or self-care (01) | DRG 768 ==
LOC: OPOB 12:33 → OBGYN 12:33
PROVIDERS: Admitting Provider Obstetrics & Gynecology; Visit Provider Obstetrics & Gynecology
DX: O48.0 Post-term pregnancy (principal); Z37.0 Single live birth; O70.3 Fourth degree perineal laceration during delivery; Z3A.40 40 weeks gestation of pregnancy
CPT/HCPCS: 36415; 59025; 59409; 85025; 85027; 86850; 86900; 96374; 99211; J0595; J2405; J2590; J7121

== ENCOUNTER → 2024-06-01 16:10 | Outpatient (BNVA) | payer MEDICAID, SELFPAY | PROVIDERS: Visit Provider Obstetrics & Gynecology | DX: Z12.4 Encounter for screening for malignant neoplasm of cervix (principal) | CPT/HCPCS: 87624 ==

== ENCOUNTER → 2025-01-30 15:20 | Outpatient (BNVA) | payer OTHER, SELFPAY | PROVIDERS: Visit Provider Nurse Practitioner Women's Health | DX: Z32.01 Encounter for pregnancy test, result positive (principal); N91.2 Amenorrhea, unspecified | CPT/HCPCS: 81025; 84702; 86850; 86900 ==